=== PATIENT | female | born 1960 | race Caucasian/White ===

== ENCOUNTER 2016-11-12 14:38 | Inpatient (IN) | payer OTHER ==
[~2016-11-12] VITALS: Ht 154.9 cm; Wt 58.8 kg
[2016-11-12 16:31] VITALS: BP 124/70; PULSE 95; TEMP 98.5
[2016-11-12 17:46] LABS: HEMATOCRIT 17.5 % (37.0-47.0); HEMOGLOBIN 5.6 g/dl (12.5-16.0)
[2016-11-12] MEDS ORDERED: SYNTHROID0.075 MG/T PO (19:14)
[2016-11-12] MEDS ORDERED: SYNTHROID0.1 MG/TAB PO (19:15)
[2016-11-12 19:42] VITALS: BP 155/78; PULSE 91; TEMP 98
[2016-11-12 21:36] VITALS: BP 133/61; PULSE 90; TEMP 98.1
[2016-11-12 21:53] VITALS: BP 132/65; PULSE 84; TEMP 98.2
[2016-11-12 22:25] VITALS: BP 126/54; PULSE 78; TEMP 98.2
[2016-11-12 23:28] VITALS: BP 119/51; PULSE 75
[2016-11-13] VITALS (16 sets, daily range): BP systolic 93–149; BP diastolic 47–88; PULSE 60–88; TEMP 97.6–98.3
[2016-11-13 05:39] LABS: HEMATOCRIT 27.1 % (37.0-47.0); HEMOGLOBIN 9.2 g/dl (12.5-16.0)
[2016-11-13 09:22] LABS: CALCIUM 8.7 mg/dL (8.4-10.2); CREATININE, serum 0.79 mg/dL (0.52-1.25); POTASSIUM 4.1 mmol/L (3.4-5.0)
[2016-11-13 17:25] LABS: HEMATOCRIT 23.8 % (37.0-47.0)
[2016-11-14 01:15] VITALS: BP 134/69; PULSE 69; TEMP 97.4
[2016-11-14 05:02] VITALS: BP 129/74; PULSE 83; TEMP 97.9
[2016-11-14 07:44] VITALS: BP 128/76; PULSE 75; TEMP 98.6
[2016-11-14 08:13] LABS: BASO # 0.1 (0.0-0.2); BASO % 1.1 % (0.0-2.0); EOS # 0.2 (0.0-0.7); EOS % 4.2 % (0-4.0); GRAN # 2.4 (1.4-6.5); GRAN % 54.2 % (42.2-75.2); HEMATOCRIT 28.2 % (37.0-47.0); HEMOGLOBIN 9.5 g/dl (12.5-16.0); LYMPH # 1.4 (1.2-3.4); LYMPH % 31.6 % (20.0-51.0); MEAN CELL VOLUME 90 fl (80.0-100.0); MEAN CORPUSCULAR HEMOGLOBIN 30 pg (27.0-31.0); MEAN CORPUSCULAR HGB CONC 34 g/dl (33.0-37.0); MEAN PLATELET VOLUME 10.7 fl (7.4-10.4); MONO # 0.4 (0.1-0.6); MONO % 8.7 % (1.7-9.3); PLATELET COUNT 221 K/mm3 (130-400); RED BLOOD COUNT 3.14 M/mm3 (4.10-5.30); REDCELL DISTRIBUTION WIDTH-CV 12.9 % (11.5-14.5); WHITE BLOOD COUNT 4.5 K/mm3 (4.8-10.8)
[2016-11-14 08:29] LABS: CALCIUM 8.6 mg/dL (8.4-10.2); CREATININE, serum 0.73 mg/dL (0.52-1.25); POTASSIUM 3.7 mmol/L (3.4-5.0)
[2016-11-14 11:26] VITALS: BP 148/76; PULSE 69; TEMP 98.3
[2016-11-14 15:29] VITALS: BP 133/67; PULSE 76; TEMP 98.6
[2016-11-14] MEDS ORDERED: FERROUS SU325 MG/TAB PO (15:48)
[2016-11-14] MEDS ORDERED: PROTONIX 40MG T40 MG PO (15:49)
== END 2016-11-14 14:30 | disposition home or self-care (01) | DRG 378 ==
LOC: MEDICAL 15:44
PROVIDERS: Internal Medicine Gastroenterology; Physician Assistant
PROC: 0DB68ZX Excision of Stomach, Via Natural or Artificial Opening Endoscopic, Diagnostic (ICD-10-PCS; principal; 2016-11-13 15:00)
PROC: 0DJD8ZZ Inspection of Lower Intestinal Tract, Via Natural or Artificial Opening Endoscopic (ICD-10-PCS; 2016-11-13 15:00)
DX: K26.4 Chronic or unspecified duodenal ulcer with hemorrhage (principal); D62 Acute posthemorrhagic anemia; K64.2 Third degree hemorrhoids; K57.90 Diverticulosis of intestine, part unspecified, without perforation or abscess without bleeding; K25.4 Chronic or unspecified gastric ulcer with hemorrhage
CPT/HCPCS: 99223-AI; 99231-AI; 99239; C9113; J2250; J3010; J7030; P9016